=== PATIENT | female | born 1985 | race Caucasian/White ===

== ENCOUNTER 2021-11-12 09:47 | Day surgery (SDC) | payer BC, OTHER ==
[~2021-11-12] VITALS: Ht 167.6 cm; Wt 107.0 kg
[~2021-11-12 09:47] MED LIST: ALBU2.5V8 INH; CELE50CA PO; CETI10TA74 PO; DEXAMETHASONE SOD PHOS 20 MG/5 ML VIAL. ONE; DULO20CA PO; HYDR-2761 PO; HYDROmorphone 2 MG/ML VIAL IVP PRN; LIDOCAINE 1% PF 5 ML VIAL. ONE; LUBI8CAP4 PO; MORPHINE SULFATE 2 MG/ML INJ. IVP PRN; OMEP40CA7 PO; ONDA4TAB7 PO; ONDANSETRON PF 4 MG/2 ML VIAL. ONE; PROCHLORPERAZINE 10 MG/2 ML VIAL. IVP PRN; PROPOFOL 10 MG/ML (20ML) VIAL. IV ONE; ROCURONIUM 50 MG/5 ML VIAL. ONE; fentaNYL PF VIAL 100 MCG/2 ML VIAL IVP PRN
[2021-11-12] MEDS ORDERED: ACET325T9 PO (10:01)
[2021-11-12 10:04] VITALS: BP 128/58
[2021-11-12] MEDS: IV RINGERS,LACTATED 1000ML 1,000 ML IV SCH ×2 (10:15→13:51)
[2021-11-12] MEDS ORDERED: CITRIC ACID/SODIUM CITRATE 30 ML SOLUTION. PO ONE (10:30)
[2021-11-12] MEDS ORDERED: SCOPOLAMINE 1.5MG PATCH. TD ONE (10:30)
[2021-11-12] MEDS ORDERED: FAMOTIDINE 20 MG/2 ML VIAL IVP ONE (10:30)
[2021-11-12] MEDS ORDERED: SURGICEL HEMOSTAT 4X8 EACH. ONE (10:45)
[2021-11-12] MEDS ORDERED: IOHEXOL 300 MG/ML 50 ML VIAL. ONE (10:45)
[2021-11-12] MEDS ORDERED: BUPIVACAINE MPF 0.5% 30 ML VIAL. ONE (10:46)
[2021-11-12] MEDS ORDERED: fentaNYL PF VIAL 100 MCG/2 ML VIAL ONE ×2 (11:24→13:02)
[2021-11-12] MEDS ORDERED: MIDAZOLAM HCL/PF 2 MG/2 ML VIAL. ONE (11:25)
[2021-11-12] MEDS ORDERED: GLYCOPYRROLATE 1 MG/5 ML VIAL. ONE (11:25)
[2021-11-12] MEDS ORDERED: IOHEXOL 300 MG/ML 50 ML VIAL. IV ONE (12:00)
[2021-11-12] MEDS ORDERED: PHENYLEPHRINE in 0.9% NACL PF 1 MG/10 ML SYRINGE. IV ONE (12:12)
[2021-11-12] MEDS ORDERED: BUPIVACAINE MPF 0.5% 30 ML VIAL. IJ ONE (12:30)
[2021-11-12] MEDS ORDERED: SEVOFLURANE 61 TO 120 MINUTES. IH ONE (12:47)
[2021-11-12] MEDS ORDERED: KETOROLAC 30 MG/ML VIAL. ONE (12:47)
--- NOTE | 2021-11-12 12:54 | RAD ---
DG INTRAOPERATIVE CHOLANGIOGRAM History: Reason: CHOLANGIOGRAM W/C-ARM / Spl. Instructions: 26.1 SEC, 4 IMAGES / History: Pain Comparison: None. Technique/findings: Fluoroscopy provided during cholangiogram after cholecystectomy. No intrahepatic biliary ductal dilat ation. No distal common bile duct stenosis or obstruction. Contrast flows into the small bowel. See procedure note for further details. Fluoroscopy time: 26.1 seconds Number of fluoroscopic images: 4 Impression: 1. Fluoroscopy provided during intraoperative cholangiogram. No common bile duct stenosis or obstruc tion. Electronically signed by: Manohar Parsons DO (11/12/2021 12:52 PM) [id number]
[2021-11-12] MEDS ORDERED: PROCHLORPERAZINE 10 MG/2 ML VIAL. ONE (13:02)
--- NOTE | 2021-11-12 13:08 | PDOC4 ---
Operative Note Operative Note Operative Note: Preoperative Diagnosis: Acalculous cholecystitis Postoperative Diagnosis: Same Procedure: Laparoscopic cholecystectomy with intraoperative cholangiogram Surgeons: Dank [employer] Technician: Va FAIR Anesthesia: Gen. Estimated Blood Loss: 10 mL Specimen: Gallbladder to pathology Drains: None Complications: None Indications: The patient is a 36-year-old female who underwent a GI evaluation and was referred with suspected acalculous cholecystitis. Surgical treatment was offered by means of a laparoscopic cholecystectomy. The risks of surgery were discussed which include bleeding, infection, bile duct injury, bile leak, pain, the potential for additional surgeries or procedures. The patient understands and would like to proceed. Description: The patient was taken to the operating room and laid supine on the operating table. General anesthesia was performed. The abdomen was prepped with ChloraPrep and draped in a standard surgical fashion. A small supraumbilical incision was made with a scalpel. The Veress needle was then inserted and a pneumoperitoneum was then created. A 5 mm trocar was then inserted and the laparoscope was introduced. In the upper midabdomen a 5 mm trocar was inserted and in the right upper quadrant two 2.3 mm mini lap graspers were inserted. The gallbladder was retracted cephalad. The cystic duct was dissected free from surrounding tissues. One clip was placed on the duct near the gallbladder junction. An opening was made in the duct and a cholangiocatheter placed within and secured with a clip. Using contrast dye and fluoroscopy an intraoperative cholangiogram was performed that appeared unremarkable. The clip and catheter were then withdrawn. Three clips were placed on the cystic duct and it was divided. The cystic artery was then identified, dissected free, doubly clipped and divided as well. The gallbladder was then mobilized away from the liver with cautery. The umbilical 5 millimeter trocar was exchanged for an 11 millimeter trocar. The gallbladder was then placed in an endoscopic bag and extracted at the umbilical trocar site. The fascia there was closed with an 0 Vicryl suture and infiltrated with 0.5% marcaine. All blood and irrigation fluid was suctioned and hemostasis was good. The remaining ports were removed and the pneumoperitoneum was relieved. The skin incisions were closed using 4-0 Monocryl suture. Steri-Strips and dressings were then applied. The patient tolerated the procedure well and was sent to the recovery room in stable condition. At the end of the case all counts were correct. VAMSHI MONTERO MD Nov 12, 2021 13:08
[2021-11-12] MEDS ORDERED: OXYC-325 PO (13:10)
--- NOTE | 2021-11-12 13:15 | DISCH ---
DISCHARGE INSTRUCTIONS Condition on Discharge Condition on Discharge: Stable Activity After Discharge Activity Instructions for Disc: Other, see below (no lifting over 20 lbs X 2 weeks) Diet after Discharge Diet after Discharge: Regular Wound Incision Care Wound/Incision Care: Other, see below (may remove bandaids and shower tomorrow) Follow-Up Follow up with: Dr Montero in office in 2 weeks, call for appointment [phone] VAMSHI MONTERO MD Nov 12, 2021 13:15
[2021-11-12] MEDS ORDERED: oxyCODONE/APAP 5/325 1 TAB TABLET PO ONE (13:45)
[2021-11-12 14:31] VITALS: BP 108/66
--- NOTE | 2021-11-14 17:09 | PATHOLOGY ---
[facility] Accession Number: [id number] . 01 Material submitted: . gallbladder - GALLBLADDER WITH CONTENTS . 01 Clinical history: . CHOLELITHIASIS LAP MANUELITO . 02 Diagnosis: Gallbladder, laparoscopic cholecystectomy: - Chronic cholecystitis. - Reactive changes of gallbladder neck lymph node. LBQ 11/14/2021 1456 Local . 02 Comment: There are no calculi identified within the gallbladder lumen or specimen container. There is no evidence of malignancy. (JPM/db; 11/14/2021) . 02 Electronically signed: . Devonte Shelton MD, Pathologist NPI- [id number] . 01 Gross description: . . Fixative: Formalin Labeled: Gallbladder with contents Specimen received: Intact Dimensions: 8.8 x 3.5 x 3.3 cm Lymph node: Gill, 0.9 x 0.4 x 0.4 cm, trisected Serosa: Blue-purple, smooth and dusky Calculi: None within the specimen or specimen container Mucosa: Green and velvety with very minimal parham stippling Average wall thickness: 0.3 cm Abnormalities: None A1: Gallbladder, represented to include the entirety of the candidate lymph gill ([place]; 11/13/2021) DKA/DKA 11/13/2021 1306 Local . 02 Pathologist provided ICD-10: K81.1 . 02 CPT . 572327 Specimen Comment: A courtesy copy of this report has been sent to [phone], [phone] Specimen Comment: [id number] Specimen Comment: Report sent to / DR CHRISTIANSEN Specimen Comment: A duplicate report has been generated due to demographic updates. Performed at: 01 [facility] [address], [place], [place] [id number] MD Quinton Han MD Phone: [phone] Performed at: [address] [id number] MD Devonte Shelton MD Phone: [phone]
== END 2021-11-12 15:23 | disposition home or self-care (01) ==
LOC: SURG 09:47
PROVIDERS: ATTEND Surgery
DX: K81.1 Chronic cholecystitis (principal); J45.909 Unspecified asthma, uncomplicated; K21.9 Gastro-esophageal reflux disease without esophagitis; Z79.899 Other long term (current) drug therapy; Z98.890 Other specified postprocedural states
CPT/HCPCS: 47563; 74300; 81025; 88304; A4213; A4314; A4364; A4930; A6219; C1887; J0690; J0780; J1100; J1885; J2370; J2405; J2704; J3010; J3490; Q9967; A4657; J2250